=== PATIENT | male | born 1950 | race African-American/Black ===

== ENCOUNTER 2018-01-06 07:39 | Day surgery (SDC) | payer MEDICARE ==
[~2018-01-06] VITALS: Ht 172.7 cm; Wt 85.0 kg
[2018-01-06] VITALS (8 sets, daily range): BP systolic 108–136; BP diastolic 62–83; PULSE 60–72; RESP 16–20; TEMP 97.5–97.9; O2SAT 93–97
[~2018-01-06 07:39] MED LIST: ZOSTINJ SQ
[2018-01-06] MEDS ORDERED: MULT-65 PO (07:55)
[2018-01-06] MEDS ORDERED: SODIUM CHLOR 0.9% 1000 ML INJ 1,000 ML IV SCH (09:00)
[2018-01-06] MEDS ORDERED: MIDAZOLAM HCL 2 MG/2 ML VIAL ONE (09:29)
--- NOTE | 2018-01-06 12:25 | PD.RAD ---
Post Procedure Progress Note Pre Procedure Diagnosis: (1) Metastatic lung carcinoma (2) Recurrent left pleural effusion Post Procedure Diagnosis: (1) Metastatic lung carcinoma (2) Recurrent left pleural effusion Procedure Date: Jan 06, 2018 Supervising Radiologist: Leonides Kimble Proceduralist/Assist: Sherly Jessica, RT(R)(), Kerri Roque RT(R) Anesthesia: Local, Analgesia, Conscious Sedation Plan of Activity Patient to Unit: ROPU Patient Condition: Good See PACS Report for procedural detail/treatment Drainage Procedure Procedure 1 Imaging Guidance: Fluoroscopy, Ultrasound Side: Left Procedure Type: Chest Tube Tunneled ([place]) Drainage: Suction Fluid Removal (CCs): 200 Fluid Description: Yellow, Red Leonides Kimble MD Jan 06, 2018 12:25
--- NOTE | 2018-01-06 12:49 | RADRPT ---
EXAM DATE/TIME: 01/06/2018 09:52 [place] COMPARISON: No previous studies available for comparison. INDICATIONS : Hepatitis C SEDATION TIME: 10 minutes BIOPSY SITE: Right MEDICATION(S): 1.) 1.5 mg midazolam (Versed) IV 2.) 100 mcg fentanyl (Sublimaze) IV DEVICE(S): 1.) 18 gauge Temno core biopsy needle 9cm MEDICAL HISTORY : Hepatitis C. SURGICAL HISTORY : None. ENCOUNTER: Initial ACUITY: 1 day PAIN SCORE: 0/10 LOCATION: Right upper quadrant A total of one core specimen(s) were obtained and sent to the laboratory for pathologic evaluation. PROCEDURE: 1. CT guided liver biopsy. Prior to the procedure informed consent was obtained. Any appropriate prior imaging studies were rev iewed. Using automated exposure control and adjustment of the mA and/or kV according to patient size, radiat ion dose was kept as low as reasonably achievable to obtain optimal diagnostic quality images. DICOM format image data is available electronically for review and comparison. The site was prepped in a sterile fashion. Full sterile technique was used, including cap, mask, michelle rile gloves and gown and a large sterile sheet. Hand hygiene and 2% chlorhexidine and/or betadine/al cohol prep was utilized per protocol for cutaneous antisepsis. The skin and subcutaneous tissues wer e infiltrated with local anesthetic solution. With CT guidance the previously identified target was localized. Biopsy was performed using the presc ribed needle as above. Adequate hemostasis was obtained with compression at the puncture site. Follow-up CT scan reveals no hemorrhage. The patient tolerated the procedure well and there were no complications. The patient was returned to the Radiology Outpatient Unit in stable condition. CONCLUSION: Uncomplicated CT guided biopsy. Willem Carranza MD on January 06, 2018 at 12:46 Board Certified Radiologist. This report was verified electronically.
== END 2018-01-06 14:14 | disposition home or self-care (01) ==
LOC: HRAD 07:39 → HRIP 07:43 → HRAD 14:14
PROVIDERS: ATTEND Physician Assistant Medical
DX: B18.2 Chronic viral hepatitis C (principal); C34.90 Malignant neoplasm of unspecified part of unspecified bronchus or lung; J90 Pleural effusion, not elsewhere classified
CPT/HCPCS: 47000; 77012; 88307; 88313; 99152; J2250; J3010; J7030